=== PATIENT | female | born 1970 | race Caucasian/White ===

== ENCOUNTER 2020-11-10 09:13 | Outpatient (CLI) | payer OTHER, SELFPAY | END 2020-11-10 09:14 | disposition home or self-care (01) | LOC: ANHCOVIDVC 09:13 | PROVIDERS: PCP Family Medicine | DX: Z23 Encounter for immunization (principal) | CPT/HCPCS: 0001A; 91300 ==

== ENCOUNTER 2020-12-01 09:14 | Outpatient (CLI) | payer OTHER, SELFPAY | END 2020-12-01 09:15 | disposition home or self-care (01) | LOC: ANHCOVIDVC 09:14 | PROVIDERS: PCP Family Medicine | DX: Z23 Encounter for immunization (principal) | CPT/HCPCS: 0002A; 91300 ==

== ENCOUNTER 2024-09-15 14:44 | Emergency (ER) | payer OTHER, SELFPAY ==
--- NOTE | ~2024-09-15 | XR_ITS ---
EXAMINATION: XR chest 1V portable DATE: 09/15/2024 15:13 INDICATION: Chest tightness. TECHNIQUE: A single frontal view of the chest was obtained. COMPARISON: CT abdomen and pelvis 11/03/2009 FINDINGS: There is mild atelectasis at the lung bases. No pleural effusion or pneumothorax. The heart size is normal. IMPRESSION: 1. Mild atelectasis at the lung bases. Reviewed, dictated and finalized at location A. R UNLOADER
--- NOTE | ~2024-09-15 | XR_ITS ---
EXAMINATION: XR shoulder LT min 2V DATE: 09/15/2024 15:13 INDICATION: Left shoulder pain. TECHNIQUE: 4 views of left shoulder were obtained. COMPARISON: None. FINDINGS: Alignment is normal. No fracture. Glenohumeral joint is normal. There is moderate acromiocl avicular joint osteoarthritis. IMPRESSION: 1. Moderate acromioclavicular joint osteoarthritis. Reviewed, dictated and finalized at location A. CTOR OF EVENT SALES
[2024-09-15 14:44] VITALS: BP 141/78; PULSE 82; RESP 18; TEMP 36.3; O2SAT 97
[2024-09-15 14:45] VITALS: O2SAT 97
--- NOTE | 2024-09-15 15:00 | ECG_ITS ---
Test Date: 2024-09-15 15:15:22 Measurements Intervals Moody Rate: 71 P: 61 [place]: 183 QRS: 80 QRSD: 94 T: 47 QT: 405 QTc: 443 Interpretive Statements SINUS RHYTHM WITH SINUS ARRHYTHMIA BASELINE ARTIFACT- I, III, AVR, AVL, AVF, V1 NORMAL ECG No previous ECG available for comparison Electronically Signed On 09-15-2024 15:22:00 QUALITY ASSURANCE DIRECTOR by Flo Retana D.O.
[2024-09-15 15:13] LABS: Add Urine Microscopic? NO; Appearance Urine Clear (Clear); Bilirubin Urine Negative (Negative); Blood Urine Negative (Negative); Color Urine Light Yellow (Yellow); Glucose Urine UA Negative (Negative); Ketones Urine Negative (Negative); Leukocyte Esterase Ur Negative LEU/UL (Negative); Nitrate Urine Negative (Negative); Protein Urine Negative (Negative); Specific Grav Ur 1.015 (1.010-1.020); Urobilinogen Urine 0.2 mg/dL (0.2-1.0); pH Urine 5.5 (5.0-8.0)
[2024-09-15 15:40] VITALS: BP 114/72; PULSE 73; RESP 16; O2SAT 96
[2024-09-15 15:48] LABS: Influenza A QL RT-PCR Negative (Negative); Influenza B QL RT-PCR Negative (Negative); RSV RNA, RT-PCR Negative (Negative); SARS-CoV-2 RNA PCR Negative (Negative)
--- NOTE | 2024-09-15 16:21 | ED.BACK ---
HPI - Back Pain/Injury General Chief Complaint: Shortness of Breath/Dyspnea Stated Complaint: pain between shoulder blades Time Seen by Provider: 09/15/24 14:55 Source: patient Mode of arrival: ambulatory Limitations: no limitations History of Present Illness HPI Narrative: patient is a 54-year-old female with significant past medical history that presents today for a couple of different complaints. First of all she has pain between her shoulder blades more on the left side. She also has chest pain with inspiration and pain between the shoulder blades with aspiration as well. Denies any shortness of breath. Denies any cardiac history. She is describing more musculoskeletal pain versus costochondritis and pleuritis. MD elicited complaint: other ( In between shoulder blades on left side) Onset (ago): day(s) Timing: intermittent Severity: mild Pain scale (0-10): 3 Similar Symptoms Previously: No Quality: sharp Radiation: none Exacerbating factors: none Relieving factors: none Context: while lifting Associated symptoms: other ( pain with deep breast) Treatments prior to arrival: heat therapy Work related injury: No Related Data Allergies Allergy/AdvReac Type Severity Reaction Status Date / Time No Known Allergies Allergy Verified 09/15/24 14:58 Review of Systems Review of Systems: All systems reviewed & are unremarkable except as noted in HPI and below Constitutional: Constitutional: Reports as per HPI Eyes: Eyes: Reports no additional eye complaints ENT: Reports system reviewed and no additional complaints, except as documented Cardiovascular: Cardiovascular: Reports no additional cardiovascular complaints Respiratory: Respiratory: Reports no additional respiratory complaints Gastrointestinal: Gastrointestinal: Reports no additional gastrointestinal complaints Genitourinary: Genitourinary: Reports no additional female genitourinary complaints Musculoskeletal: Musculoskeletal: Reports as per HPI and Reports arthralgias Comments: pain between shoulder blades on left side, pain with the press around the sternum. , pain left acromioclavicular area. Integumentary/Breasts: Skin/Breast: Reports system reviewed and no additional complaints, except as docu Neurologic: Reports system reviewed and no additional complaints, except as documented Psychiatric: Psychiatric: Reports no additional psychiatric complaints Endocrine: Endocrine: Reports no additional endocrine complaints Hematologic/Lymphatic: Hematologic/Lymphatic: Reports no additional hematologic/lymphatic complaints Allergic/Immunologic: Allergic/Immunologic: Reports no additional allergic/immunologic complaints [facility] Past Medical History Medical History Shoulder pain, acute Anemia MVP (mitral valve prolapse) Anxiety Surgical History Surgical History H/O spinal fusion (~2002) Social History Social History Smoking status: Never smoker Alcohol intake: current Drinks per week: 3 Substance use: never Substance use type: does not use Exam Const: General: healthy appearing Nutritional Appearance: well nourished Orientation/consciousness: patient oriented x3 HENMT: Head: normal to inspection Ears: external ears normal Face/Nose/Sinus: Normal external nose present Face and sinus: normal facial exam Mouth: Yes Normal oral and palatal mucosa present Eyes: Conjunctivae: conjunctivae normal Pupils: Equal, round and reactive pupils present EOM: EOMs intact bilaterally Direct Ophthalmoscopy: no photophobia Neck: Neck: normal visual inspection Chest: Chest palpation & inspection: normal inspection of the chest Resp: Effort & Inspection: normal respiratory effort Auscultation: clear to auscultation bilaterally Cardio: Rate: regular rate Rhythm: regular rhythm Heart sounds: Murmur heart sound present GI: Auscultation: normal bowel sounds Rectal Exam: normal sphincter tone Back/Spine/Pelvis: Back: no CVA tenderness Skin: General skin exam: normal color Rashes: no rashes Wounds: no wounds Neuro: General: patient oriented x3 Cranial nerves: Yes Nystagmus not present Speech: normal speech Extrem: General: normal to inspection Psych: Mental Status: mental status grossly normal Affect: normal affect Attitude: cooperative Course Vital Signs Vital signs: Vital Signs Temperature 97.3 F L 09/15/24 14:44 Pulse Rate 82 09/15/24 14:44 Respiratory Rate 18 09/15/24 14:44 Blood Pressure 141/78 H 09/15/24 14:44 Pulse Oximetry 97 09/15/24 14:44 Oxygen Delivery Room Air 09/15/24 14:44 Temperature 97.3 F L 09/15/24 14:44 Pulse Rate 82 09/15/24 14:44 Respiratory Rate 18 09/15/24 14:44 Blood Pressure 141/78 H 09/15/24 14:44 Pulse Oximetry 97 02/17/25 14:45 Oxygen Delivery Room Air 09/15/24 14:45 MDM - Back Pain/Injury MDM Narrative Medical decision making narrative: Patient has pain between her shoulder was on the left side is very tender to touch on the left musculoskeletal area, she also has pain around the sternum with the breath indicating pleuritis, she also has a little bit pain on the AC joint the left side but shoulder. Will do x-rays to the left shoulder x-ray of the chest Differential Diagnosis Differential diagnosis: Likely other ( costochondritis, pleuritis) Medical Records Attestation: I reviewed the patient's medical records. Lab Data Attestation: I reviewed the patient's lab results. Labs: Lab Results 09/15/24 09/15/24 Range/Units 15:00 15:04 Urine Color Light yellow (Yellow) Urine Appearance Clear (Clear) Urine pH 5.5 (5.0-8.0) Ur Specific Pingree 1.015 (1.010-1.020) Urine Protein Negative (Negative) Urine Glucose (UA) Negative (Negative) Urine Ketones Negative (Negative) Ur Blood (Man) Negative (Negative) Urine Nitrate Negative (Negative) Urine Bilirubin Negative (Negative) Urine Urobilinogen 0.2 (0.2-1.0) mg/dL Leukocyte Esterase Rfl Negative (Negative) CHELY/UL Influenza A (RT-PCR) Negative (Negative) Influenza B (RT-PCR) Negative (Negative) RSV (RT-PCR) Negative (Negative) SARS-CoV-2 RNA (RT-PCR) Negative (Negative) Imaging Data Attestation: I personally reviewed and interpreted this imaging study as follows: Discharge Plan Discharge Clinical Impression: Costochondritis, Pleuritis Shoulder pain, acute Qualifiers: Laterality: left Qualified Code(s): M25.512 - Pain in left shoulder Patient Disposition: Home, Self-Care Condition: Stable Instructions: Pleurisy (ED), Costochondritis (ED) Additional Instructions: take ibuprofen every 6-8 hours 100 mg for the next couple days and then take as needed. Use heat packs between the shoulder blades. Patient Language: Maltese Prescriptions: No Action baclofen 10 mg tablet 10 mg PO TID PRN (Reason: pain, severe) Qty: 90 0RF Follow-up/Referrals: Vance,Radha [Other] Time of Disposition: 16:28
[2024-09-15 16:40] VITALS: BP 119/66; PULSE 83; RESP 16; TEMP 36.6; O2SAT 98
--- OUTSIDE RECORDS SUMMARY | 2024-09-15 17:33 | XMS_ITS | Continuity of Care Document ---
Author Organization [facility] Address [address] [place] [address] [address] [place] [address] Phone Care Team Providers Care Remote Broadcast Technician Name Role Phone Larry, Eddalila Unavailable Unavailable Advance Directives Directive Yes / No Effective Date File Name No Information Encounters Encounter Description Practice Location Reason(s) For Visit Diagnoses Date Provider Providers Copied on Encounter [facility], [address], [place], [place], [id number], [place] tel:[phone] SEC [facility] No Information 0 5-200 1 Doisy Edward. [address] [facility] , [address], [place], [place], [facility], [place]. tel:[phone] Referring Provider: Sage Valente, [address] [facility] [address], [place], [place], [facility]. tel:[phone] Family History Family Member Type Diagnosis Age At Onset No Information Payers Payer name Insurance type Covered alliance party ID Authoriza tion(s) No Information Social History [...]
--- OUTSIDE RECORDS SUMMARY | 2024-09-15 17:33 | XMS_ITS | Clinical Summary ---
Author Organization [facility] [facility] Address [address] [place] [address] Phone Care Team Providers Care Script Artist Name Role Phone Briana Mendez Primary Care Provider [phone] Social History Tobacco Use Types Packs/Day Years Used Date Smoking Tobacco: Never Assessed Comments Unknown Sex and Gender Information Value Date Recorded Sex Assigned at Not on file Legal Sex Female 10:10 AM CDT Gender Identity Not on file Sexual Orientation Not on file Plan of Treatment Health Maintenance Due Date Last Done Comments DTAP/TDAP/TD VACCINES (1 - Tdap) 1989 HEPATITIS B VACCINES (1 of 3 - 19+ 3-dose series) 1989 CERVICAL CANCER SCREENING 02/14/2000 COLORECTAL SCREENING 2015 Colorectal Cancer Screening 2015 FIT-DNA Q 3 years 2015 FIT/FOBT Q 1 year 2015 Flex Sig/CT Colonography Q 5 years 2015 ZOSTER VACCINE (1 of 2) 02/14/2020 INFLUENZA VACCINE (#1) 2024 BREAST CANCER SCREENING 06/13/2024 06/13/20 23, 03/02/2023 PNEUMOCOCCAL VACCINE 0-64 YEARS Aged Out No longer eligible b ased on patient's age to complete this topic Procedures Procedure Name Priority Date/Time Associated Diagnosis Comments MAMMO DIAG UNI RIGHT 3D JEFFREY W OR WO CAD Routine 06/13/2023 9:20 AM GAS JOCKEY Abnormal screening mammogram from Last 3 Months or Most Recently Relevant to Health Maintenance Results * (ABNORMAL) MAMMO DIAG UNI RIGHT 3D JEFFREY W OR WO CAD (06/13/2023 9:20 AM GAS JOCKEY) Anatomical Region Laterality Modality Breast Right Mammography 06/13/2023 9:56 AM GAS JOCKEY Narrative 06/13/2023 11:25 AM GAS JOCKEY EXAM: MAMMO DIAG UNI RIGHT 3D JEFFREY W OR WO CAD, MAMMO BREAST US RIGHT LTD, MAMMO BREAST US LEFT LTD DATE: 06/13/2023 HISTORY: Abnormal screening mammogram COMPARISON: 03/02/2023 DENSITY: Scattered fibroglandular densities. FINDINGS: Right breast diagnostic mammograms with tomosynthesis were performed. Computer assisted detection was utilized. Little significant change is noted. The parenchymal pattern is essentially unchanged a linear asymmetry in the central right deep upper breast persists and is only partially imaged on the current exam. The previously identified asymmetry in the lower outer right breast does not appear to persist with spot compression views. Ultrasound of both breasts was performed. Left breast ultrasound demonstrates a 7.5 x 3.0 mm lobular hypoechoic structure at the 4:00 position 5 cm from the nipple. Right breast ultrasound demonstrates a 7.5 x 2.0 hypoechoic lesion with a central hyperechoic core at the 8:00 position 5-6 cm from the nipple suggesting a lymph node. There is a small cyst at the 1-2:00 position 5 cm from the nipple. ASSESSMENT: 1. Indeterminate left breast nodule. A follow-up ultrasound in 6 months is recommended. 2. Right breast cyst and right breast lymph node. 3. BIRADS Category 3: Probably benign finding. Short interval follow up suggested. Digital technology was employed plus computer-aided detection software was utilized in interpretation of these images. Briana Mendez [facility] MAMMO ORDERABLES Final Result from Last 3 Months or Most Recently Relevant to Health Maintenance Insurance [facility] Care Teams Script Artist Relationship Specialty Start Date End Date Briana Mendez FNP [address] [place] [id number] PCP - General Nurse Practitioner Family 06/13/23
--- OUTSIDE RECORDS SUMMARY | 2024-09-15 17:58 | XMS_ITS | Continuity of Care Document ---
Author Organization [facility] Address [address] [place] [address] [address] [place] [address] Phone Care Team Providers Care Stake Driver Name Role Phone Larry, Eddalila Unavailable Unavailable Advance Directives Directive Yes / No Effective Date File Name No Information Encounters Encounter Description Practice Location Reason(s) For Visit Diagnoses Date Provider Providers Copied on Encounter [facility], [address], [place], [place], [id number], [place] tel:[phone] SEC [facility] No Information 0 5-200 1 Doisy Edward. [address] [facility] , [address], [place], [place], [facility], [place]. tel:[phone] Referring Provider: Sage Valente, [address] [facility] [address], [place], [place], [facility]. tel:[phone] Family History Family Member Type Diagnosis Age At Onset No Information Payers Payer name Insurance type Covered constitution party ID Authoriza tion(s) No Information Social [...]
--- OUTSIDE RECORDS SUMMARY | 2024-09-15 17:58 | XMS_ITS | Data Portability ---
Author Organization [place] - [facility], Quiana French Address [address] [place] [address] Assessment No assessment recorded. Plan of Treatment Reminders Order Date Submit Date Provider Last Modified By Organization Details Last Modified Time Details Appointments None recorded. Lab CMP, serum or plasma 2023 WILLIS [facility], [address] [place] [address], [place], [address], 08:28:01 Referral None recorded. Procedures None recorded. Surgeries None recorded. Imaging None recorded. Medication Orders fluticasone propionate 50 mcg/actuati on nasal spray,suspe nsion 2023 [facility] [place], [address] [place] [address], [address], 4 12:03:14 olopatadine 0.1 % eye drops 2023 [facility], [address] [place] [address], [address], 12:08:43 Patient TargetsNo targets recorded. Patient Instructions Encounter Date Encounter Id Patient Instructions Last Modified By Organization Details Last Modified Time 06/17/2024 [id number] allergic conjunctivitis in teens: care instructions [email or web address] Not available 06/17/2024 12:08:43 Reason for Referral None Reported. Results Created Date Observation Date Name Description Value Unit Range Abnormal Flag Note LastModifiedBy Organization Detail LastModifiedTime 09/05/19 24 09/06/2023 COMP. METAB OLIC PANEL (14) glucose 96 mg/dL 70-99 Not Available [facility] ([facility]) [address] [facility] [place], [address], 09/06/2023 08:28:01 09/05/19 24 09/06/2023 COMP. METAB OLIC PANEL (14) BUN 20 mg/dL 6-24 Not Available [facility] ([facility]) [address] [facility] [place], [address], 09/06/2023 08:28:01 09/05/19 24 09/06/2023 COMP. METAB OLIC PANEL (14) creatinine 0.80 mg/dL 0.57-1 .00 Not Available [facility] ([facility]) [address] [facility] [place], [address], 09/06/2023 08:28:01 09/05/19 24 09/06/2023 COMP. METAB OLIC PANEL (14) eGFR 88 mL/mi n/1.7 3 >59 Not Available [facility] ([facility]) [address] [facility] [place], [address], 09/06/2023 08:28:01 09/05/19 24 09/06/2023 COMP. METAB OLIC PANEL (14) BUN/creatini ne ratio 25 9-23 above high normal Not Available [facility] ([facility]) [address] [facility] [place], [address], 09/06/2023 08:28:01 09/05/19 24 09/06/2023 COMP. METAB OLIC PANEL (14) sodium 143 mmol/ L 134-14 4 Not Available [facility] ([facility]) [address] [facility] [place], [address], 09/06/2023 08:28:01 09/05/19 24 09/06/2023 COMP. METAB OLIC PANEL (14) potassium 4.5 mmol/ L 3.5-5. 2 Not Available [facility] ([facility]) [address] [facility] [place], [address], 09/06/2023 08:28:01 09/05/19 24 09/06/2023 COMP. METAB OLIC PANEL (14) chloride 105 mmol/ L 96-106 Not Available [facility] ([facility]) [address] [facility] [place], [address], 09/06/2023 08:28:01 09/05/19 24 09/06/2023 COMP. METAB OLIC PANEL (14) carbon dioxide, total 24 mmol/ L 20-29 Not Available [facility] ([facility]) [address] [facility] [place], [address], 09/06/2023 08:28:01 09/05/19 24 09/06/2023 COMP. METAB OLIC PANEL (14) calcium 9.6 mg/dL 8.7-10 .2 Not Available [facility] ([facility]) [address] [facility] [place], [address], 09/06/2023 08:28:01 09/05/19 24 09/06/2023 COMP. METAB OLIC PANEL (14) protein, total 6.6 g/dL 6.0-8. 5 Not Available [facility] ([facility]) [address] [facility] [place], [address], 09/06/2023 08:28:01 09/05/19 24 09/06/2023 COMP. METAB OLIC PANEL (14) albumin 4.6 g/dL 3.8-4. 9 Not Available [facility] ([facility]) [address] [facility] [place], [address], 09/06/2023 08:28:01 09/05/19 24 09/06/2023 COMP. METAB OLIC PANEL (14) globulin, total 2.0 g/dL 1.5-4. 5 Not Available [facility] ([facility]) [address] [facility] [place], [address], 09/06/2023 08:28:01 09/05/19 24 09/06/2023 COMP. METAB OLIC PANEL (14) A/G ratio 2.3 1.2-2. 2 above high normal Not Available [facility] ([facility]) [address] [facility], [place], [address], 09/06/2023 08:28:01 09/05/19 24 09/06/2023 COMP. METAB OLIC PANEL (14) bilirubin, total 0.3 mg/dL 0.0-1. 2 Not Available [facility] ([facility]) [address] [facility], [place], [address], 09/06/2023 08:28:01 09/05/19 24 09/06/2023 COMP. METAB OLIC PANEL (14) alkaline phosphatase 118 IU/L 44-121 Not Available [facility] [address] [place], [address], 09/06/2023 08:28:01 09/05/19 24 09/06/2023 COMP. METAB OLIC PANEL (14) AST (SGOT) 27 IU/L 0-40 Not Available [facility] ([facility]) [address] [place], [address], 09/06/2023 08:28:01 09/05/19 24 09/06/2023 COMP. METAB OLIC PANEL (14) ALT (SGPT) 46 IU/L 0-32 above high normal Not Available [facility] ([facility]) [address] [place], [address], 09/06/2023 08:28:01 Result Notes None recorded. Problems Name Problem SNOMED Code Status Onset Date Resolution Date Notes Provider Name and Address Organization Details Recorded Time Anemia 357307071 Active 2023 Briana Mendez NP [address], [place], [address] , [place] - [facility] 08:45:30 Anxiety 46420072 Active 2023 Briana Mendez NP [address], [place], [address] , [facility] 4 08:45:41 Mitral valve prolapse 209138330 Active 2023 Briana Mendez NP [address], [place], [address] , [facility] 4 08:45:52 Obesity 764983066 Active 2023 Briana Mendez NP [address], [place], [address] , [facility] 4 08:45:59 Back fusion Completed 202211/15/2023 Back fusion; PROBABIL ITY: 0 Confir mation: Confirme d Annota tedDispl ay: Back fusion C lassific ation: Medical Not Available [facility] 4 15:08:09 Benign paroxysm al position al vertigo 557230878 Active 2022 Benign paroxysm al position al vertigo; PROBABIL ITY: 0 SENSIT IVITY: 0.0 Conf irmation : Confirme d Annota tedDispl ay: BPPV (benign paroxysm al position al vertigo) Classif ication: Medical Lifecycl eDateTim e: 15:21:00 +00:00 Not Available [facility] 4 15:08:11 Vertigo 224924585 Active 2023 Caryn Guillen NP [address], [facility] [place], [address] , [facility] 4 12:01:45 Allergic conjunct ivitis of bilatera l eyes 45920820292 9102 Active 2023 Caryn Guillen NP [address], [facility] [place], [address] , [facility] 4 12:04:08 Problem Notes None recorded. Procedures Surgical History Date Name Laterality Status Provider Name and Address Organization Details Recorded Time 4 Fluorescein Stain completed Caryn Guillen NP [address], [place], [address], [facility] 06/17/2024 14:09:35 Imaging Results None recorded. Procedure Notes None recorded. Medical Equipment None Reported. Allergies Allergen ID Allergen Name Allergen Category Reaction Reaction Severity Criticality Documentation Date Start Date Code Code System Note Provider Name and Address Organization Details Recorded Time 049776 No Allergy Informati on Available Not available Not available Not available Not available 11/15/2023 35929 UNK Comme nt: React ion Class : Aller gy; Not Available [facility] 14:[facility]:16 No known drug allergies Medications Name Sig Start Date Stop Date Status Note LastModified by Organization Details LastModified Time azithromy lorelei 250 mg tablet 06/17 completed Not Available Not Available Not Available ketorolac 30 mg/mL (1 mL) injection solution 03/07 completed StopType : Physicia n Stop [place] Dick umber: [id number] N extDoseD ate: 03/07/2023 10:29:00 AM Const antIndic ator: No CSASc hedule: 0 active _status_ dt_tm: 03/07/2023 10:29:34 AM Not Available Not Available Not Available meclizine 25 mg tablet 1 tab(s) Oral tid,PRN: for dizzines s 03/10 completed PRNInstr uctions: for dizzines s StopTy pe: Physicia n Stop [place] asenciotionMagaly umber: [id number] S cheduled PRN: Yes Tota lRefills : 0 Consta ntIndica tor: No CSASc hedule: 0 active _status_ dt_tm: 03/07/2023 10:22:45 AM Not Available Not Available Not Available olopatadi ne 0.1 % eye drops INSTILL 1 DROP INTO AFFECTED EYE(S) BY OPHTHALM IC ROUTE 2 TIMES PER DAY 2023 active Not Available Not Available Not Avai lable fluticaso ne propionat e 50 mcg/actua tion nasal spray,sandy pension [place] 2 sprays every day by intranas al route. active Not Available Not Available No t Available Ciprodex 0.3 %-0.1 % ear drops,sandy pension 4 drops to bilat ears BID x 7 days 06/17 completed StopType : Physicia n Stop [place] Luther icationMagaly umber: [id number] T otalRefi lls: 0 Consta ntIndica tor: Yes CSAS chedule: 0 active _status_ dt_tm: 02/01/2023 2:40:39 PM Not Available Not Available Not Available Vitals Date Recorded Body weight Body mass index (BMI) Body height Heart rate Body temperature Oxygen saturation Oxygen saturation in Arterial blood by Pulse oximetry Systolic blood pressure Diastolic blood pressure Provider Name and Address Organization Details Last Updated DateTime 4 53873.6 3 g 31.9 kg/m2 160.02 cm 71 /min 97.8 [degF] 96 % 96 % 119 mm[Hg] 82 mm[Hg] Harry Pearce [place] [facility] 4 11:30:31 Social History None recorded. Functional Status None recorded. Mental Status None recorded. Family History Nothing Reported. Medical History No medical history recorded. Gynecological HistoryNo gynecological history recorded. Obstetrics History GPAL:G 0 P 0 0 0 0 Past Encounters Encounter ID Performer Location Encounter Start Date Encounter Closed Date Diagnosis/Indication Diagnosis SNOMED-CT Code Diagnosis ICD10 Code Diagnosis Note [id number] [facility] [address] [place] [address] 09/05/2023 09:18:53 09/05/2023 09:46:16 Liver enzymes level above reference range 491625666 R74.01 [id number] Caryn Guillen, RANJEET Pugh s [address] [place] [address] 06/17/2024 11:22:15 06/25/2024 06:36:04 Vertigo 896209139 R42 pt states she uses it for vertigo in the past. continues to use it. will refill. Allergic conjunctivitis of bilateral eyes 1285892925 20777 H10.13 Discussed with pt likely an allergic conjunctiv itis given presentati on and exam findings. Discussed handout with pt. Will start olopatadin e drops BID, discussed drops by 6-8 hours. Discussed proper instillati on - wash hands before and after, dont touch bottle to eye. Can apply cool washcloths as well.If no improvemen t in the next week, pt to follow up with eye clinic downstairs or a different eye dr if she goes somewhere else for full exam; can RTC if unable to get eye appt. Discussed signs of bacterial infection (including purulent discharge that is constant) that would necessitat e reevaluati on. If any eye pain, photophobi a/light sensitivit y, or vision changes, pt needs full vision/eye exam [facility]. Vision was normal during exam but if still feels it is blurry after 2-3 days of drops or any change/wor sening, pt is to be examined by eye dr [facility].Recom mendation per state regulation s noted to follow up with a physician in 2 weeks for any new diagnosis or change in status. Pt will follow up with eye dr or RTC if no improvemen t or any change/wor sening but agrees with plan at this time.Pt verbalizes understand ing, agrees with plan, no further questions at this time. Health Concerns Section Related Observation LastModified by Organization Detai ls LastModified Time None Recorded Concern Status LastModified by Organization Details LastModified Time None Recorded Advance Directives Directive None Recorded Payers Encounter Date Sequence Insurance Name Policy Number Policy [place] Covered Member ID [place] Member ID Guarantor Name 09/05/2023 1 [facility] [id number] Lolita Jauregui UNKNOWN Lolita Jauregui 06/17/2024 1 [facility] [id number] Lolita Jauregui [id number] Lolita Jauregui Notes Date Note Type Note Provider Name and Address Organization Details Recorded Time 06/17/2024 text/html 54 y/o F present s for burning, itching, gritty sensation of bilateral eyes for the past 3 days. Pt states that she first felt like her eyes were burning and irritated this weekend. She has felt like in the last 2 days she had more tearing (clear discharge). No purulent discharge noted. No fever/chills. No sore throat, nasal congestion, sneezing, nasal discharge, or headache. Does report intermittent cough for the past few weeks, worse at night when laying down. Pt states she is going out of town this weekend and was concerned she had contracted bacterial conjunctivitis from her dog; she is currently administering antibiotics to her dog for conjunctivitis but reports wearing gloves and washing hands after administering. Pt denies any new medicines, lotions, detergents, soaps, etc that she would have been exposed to. Denies known foreign body in her eye but does state she feels like the eyes are constantly irritated, like something gritty is in both eyes. Now in the past 1-2 days, she feels like her eyes are extremely itchy though she has been trying not to rub them. Denies wearing contacts. States in the mornings the past 3 days, she feels like she wakes up more sensitive to the light in her bedroom when she turns it on but that light sensitivity does not last. Currently no photophobia/light sensitivity. No n/v/d. No dizziness. No CP or SOB with her intermittent cough. Has not tried any meds or eye drops for treatment. No cool wash cloth application. Also reports feeling like her vision is intermittently 'blurrier' than normal - but feels like it is possibly her squinting more from the burning/irritated feeling. States she still feels able to see normally most of the time- wears glasses at times but for every day vision does not wear glasses or contacts. Last eye appt was sometime early this year as she got new glasses. Pt reports using flonase in the past to keep vertigo at bay. Denies known hx of seasonal allergies and only used it for vertigo but would like a refill. Caryn Guillen, RANJEET [address], [place], [address], [place] - [facility] 06/17/2024 14:20:15 OBGyn Episode No OBEpisode recorded.
--- OUTSIDE RECORDS SUMMARY | 2024-09-15 17:58 | XMS_ITS | Clinical Summary ---
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 Briana Mendez [facility] MAMMO ORDERABLES Final Result from Last 3 Months or Most Recently Relevant to Health Maintenance Insurance [facility] [employer] Care Teams Supervisor [employer] Relationship Specialty Start Date End Date Briana Mendez FNP [address] [place] [id number] PCP - General Nurse Practitioner Family 06/13/23
== END 2024-09-15 16:40 | disposition home or self-care (01) ==
PROVIDERS: Emergency Provider Family Medicine
DX: M94.0 Chondrocostal junction syndrome [Tietze] (principal); M25.512 Pain in left shoulder; Z20.822 Contact with and (suspected) exposure to COVID-19
CPT/HCPCS: 71045; 73030; 81003; 87637; 93005; 99283

== ENCOUNTER 2024-12-16 00:37 | Day surgery (SDC) | payer OTHER, SELFPAY ==
[2024-12-09 09:54] VITALS: BMI 29.7
--- OUTSIDE RECORDS SUMMARY | 2024-12-16 00:49 | XMS_ITS | Continuity of Care Document ---
Author Organization [facility] Address [address] [place] [address] [address] [place] [address] Phone Care Team Providers Care Gerontology Aide Name Role Phone Larry, Eddalila Unavailable Unavailable Advance Directives Directive Yes / No Effective Date File Name No Information Encounters Encounter Description Practice Location Reason(s) For Visit Diagnoses Date Provider Providers Copied on Encounter [facility], [address], [place], [place], [id number], [place] tel:[phone] [facility] No Information 0 5-200 1 Doisy Edward. [address] , [address], [place], [place], [facility], [place]. tel:[phone] Referring Provider: Sage Valente, [address], [place], [place], [facility]. tel:[phone] Family History Family Member Type Diagnosis Age At Onset No Information Payers Payer name Insurance type Covered green party ID Authoriza tion(s) No Information Social [...]
--- OUTSIDE RECORDS SUMMARY | 2024-12-16 00:50 | XMS_ITS | Data Portability ---
Author Organization [place] - [facility], Quiana French Address [address] [place] [address] Assessment No assessment recorded. Plan of Treatment Reminders Order Date Submit Date Provider Last Modified By Organization Details Last Modified Time Details Appointments InPerson; Chronic Disease Mgmt 2024 03:40P Sam Clements NP Not available Not available Not available Lab HbA1c (hemoglob in A1c), blood 2024 025 [place] [facility] [place], [address], 10/01/2024 08:37:54 lipid panel, serum 2024 025 [place] [facility] [place], [address], 10/01/2024 08:37:53 TSH, ultra-sen sitive, serum 2024 025 [place] [facility] [place], [address], 10/01/2024 08:37:55 BMP, serum or plasma 2024 025 [place] [facility] [place], [address], 10/01/2024 08:37:52 Referral None recorded. Procedures colonosco py screening (PROC) - screening colonosco py 2024 025 [id number] [facility] Referral Coordinators, [address] [place] [address] [address], [place], [address], 11/19/2024 14:00:36 Surgeries None recorded. Imaging electroca rdiogram [address], [address] [place] [address], [address], 10/28/2024 10:36:36 Medication Orders topiramat e 50 mg tablet 2024 025 [facility], [address] [place] [address], [address], 11/27/2024 16:20:54 phentermi ne 15 mg capsule 2024 025 [facility], [address] [place] [address], [address], 11/27/2024 16:21:23 topiramat e 50 mg tablet [address], [address] [place] [address], [address], 10/28/2024 10:56:10 phentermi ne 15 mg capsule [address], [address] [place] [address], [address], 10/28/2024 10:53:16 Topamax 25 mg tablet 2024 025 [facility], [address] [place] [address], [address], 10/28/2024 10:45:58 fluticaso ne propionat e 50 mcg/actua tion nasal spray,sandy pension 2023 024 [facility], [address] [place] [address], [address], 06/17/2024 12:03:14 olopatadi ne 0.1 % eye drops 2023 024 [facility], [address] [place], [address], 06/17/2024 12:08:43 Patient TargetsNo targets recorded. Patient Instructions Encounter Date Encounter Id Patient Instructions Last Modified By Organization Details Last Modified Time 06/17/2024 [id number] allergic conjunctivitis in teens: care instructions [email or web address] Not available 06/17/2024 12:08:43 Reason for Referral None Reported. Results Created Date Observation Date Name Description Value Unit Range Abnormal Flag Note LastModifiedBy Organization Detail LastModifiedTime 10/01/1910/01/2024 BASIC METAB OLIC PANEL (8) glucose 102 mg/dL 70-99 above high normal Not Available [facility] ([facility]) [address] [place], [address], 10/01/2024 08:37:52 10/01/19 25 10/01/2024 BASIC METAB OLIC PANEL (8) BUN 20 mg/dL 6-24 normal Not Available [facility] ([facility]) [address] [place], [address], 10/01/2024 08:37:52 10/01/19 25 10/01/2024 BASIC METAB OLIC PANEL (8) creatinine 0.91 mg/dL 0.57-1 .00 normal Not Available [facility] ([facility]) [address] [place], [address], 10/01/2024 08:37:52 10/01/1910/01/2024 BASIC METAB OLIC PANEL (8) eGFR 75 mL/mi n/1.7 3 >59 normal Not Available [facility] ([facility]) [address] [place], [address], 10/01/2024 08:37:52 10/01/19 25 10/01/2024 BASIC METAB OLIC PANEL (8) BUN/creatini ne ratio 22 9-23 normal Not Available [facility] ([facility] [address] [place], [address], 10/01/2024 08:37:52 10/01/19 25 10/01/2024 BASIC METAB OLIC PANEL (8) sodium 142 mmol/ L 134-14 4 normal Not Available [facility] ([facility]) [address] [facility] [place], [address], 10/01/2024 08:37:52 10/01/19 25 10/01/2024 BASIC METAB OLIC PANEL (8) potassium 4.9 mmol/ L 3.5-5. 2 normal Not Available [facility] ([facility]) [address] [facility] [place], [address], 10/01/2024 08:37:52 10/01/19 25 10/01/2024 BASIC METAB OLIC PANEL (8) chloride 102 mmol/ L 96-106 normal Not Available [facility] ([facility]) [address] [facility] [place], [address], 10/01/2024 08:37:52 10/01/19 25 10/01/2024 BASIC METAB OLIC PANEL (8) carbon dioxide, total 24 mmol/ L 20-29 normal Not Available [facility] ([facility]) [address] [facility] [place], [address], 10/01/2024 08:37:52 10/01/19 25 10/01/2024 BASIC METAB OLIC PANEL (8) calcium 10.0 mg/dL 8.7-10 .2 normal Not Available [facility] ([facility]) [address] [facility] [place], [address], 10/01/2024 08:37:52 10/01/19 25 10/01/2024 LIPID PANEL W/ CHOL/ HDL RATIO cholesterol, total 232 mg/dL 100-19 9 above high normal Not Available [facility] ([facility]) [address] [facility] [place], [address], 10/01/2024 08:37:53 10/01/19 25 10/01/2024 LIPID PANEL W/ CHOL/ HDL RATIO triglyceride s 118 mg/dL 0-149 normal Not Available [facility] [address] [place], [address], 10/01/2024 08:37:53 10/01/19 25 10/01/2024 LIPID PANEL W/ CHOL/ HDL RATIO HDL cholesterol 73 mg/dL >39 normal Not Available [facility] [address] [place], [address], 10/01/2024 08:37:53 10/01/19 25 10/01/2024 LIPID PANEL W/ CHOL/ HDL RATIO VLDL cholesterol marisol 21 mg/dL 5-40 Not Available [facility] [address] [place], [address], 10/01/2024 08:37:53 10/01/19 25 10/01/2024 LIPID PANEL W/ CHOL/ HDL RATIO LDL chol calc ([facility]) 138 mg/dL 0-99 above high normal Not Available [facility] ([facility]) [address] [place], [address], 10/01/2024 08:37:53 10/01/19 25 10/01/2024 LIPID PANEL W/ CHOL/ HDL RATIO LDL calc comment: [employer] Not Available [facility] ([facility]) [address] [place], [address], 10/01/2024 08:37:53 10/01/19 25 10/01/2024 LIPID PANEL W/ CHOL/ HDL RATIO T. chol/HDL ratio 3.2 ratio 0.0-4. 4 T. Chol/ HDL Ratio Men Women 1/2 Avg.R isk 3.4 3.3 Avg.R isk 5.0 4.4 2X Avg.R isk 9.6 7.1 3X Avg.R isk 23.4 11.0 Not Available [facility] ([facility]) [address] [place], [address], 10/01/2024 08:37:53 10/01/19 25 10/01/2024 HEMOG LOBIN A1C hemoglobin A1C 5.4 % 4.8-5. 6 normal Predi abete s: 5.7 - 6.4 Diabe david: >6.4 Glyce yamileth contr ol for adult s with diabe david: <7.0 Not Available [facility] ([facility]) [address] [facility], [place], [address], 10/01/2024 08:37:54 10/01/19 25 10/01/2024 TSH RFX ON ABNOR MAL TO FREE T4 TSH 1.810 uIU/m L 0.450- 4.500 normal Not Available [facility] ([facility]) [address] [facility], [place], [address], 10/01/2024 08:37:54 09/18/19 25 09/15/2024 XR, chest , 1 view No observ ation record ed. BARCODE Not Available 2024 17:16:53 10/29/19 25 10/28/2024 elect rocar diogr am No observ ation record ed. [email or web address] [facility] [address] [place], [address], 10/28/2024 11:52:15 11/04/19 elect rocar diogr am No observ ation record ed. [email or web address] [facility] [address] [place], [address], 11/03/2024 12:38:45 11/18/19 25 11/17/2024 MAMMO , diagn ostic , bilat eral No observ ation record ed. [email or web address] [facility] [address] [facility], [place], [address], 11/27/2024 17:08:13 11/18/19 25 11/17/2024 MAMMO , diagn ostic , bilat eral No observ ation record ed. [email or web address] [facility] [address] [facility], [place], [address], 11/27/2024 17:08:13 Result Notes None recorded. Problems Name Problem SNOMED Code Status Onset Date Resolution Date Notes Provider Name and Address Organization Details Recorded Time Anemia 087639821 Active 2023 Briana Mendez NP [address], [place], [address] , [place] [facility] 4 08:45:30 Anxiety 07832209 Active 2023 Brinaa Mendez NP [address], [place], [address] , [place] [facility] 4 08:45:41 Mitral valve prolapse 144406892 Active 2023 Briana Mendez NP [address], [place], [address] , [place] [facility] 4 08:45:52 Obesity 953929263 Active 2023 Briana Mendez NP [address], [place], [address] , [place] [facility] 4 08:45:59 Back fusion Completed 202211/15/2023 Back fusion; PROBABIL ITY: 0 Confir mation: Confirme d Annota tedDispl ay: Back fusion C lassific ation: Medical Not Available [facility] 4 15:08:09 Benign paroxysm al position al vertigo 421454943 Active 2022 Benign paroxysm al position al vertigo; PROBABIL ITY: 0 SENSIT IVITY: 0.0 Conf irmation : Confirme d Annota tedDispl ay: BPPV (benign paroxysm al position al vertigo) Classif ication: Medical Lifecycl eDateTim e: 15:21:00 +00:00 Not Available [facility] 4 15:08:11 Vertigo 535699337 Active 2023 Caryn Guillen NP [address], [place], [address] , [place] [facility] 4 12:01:45 Allergic conjunct ivitis of bilatera l eyes 94933113820 9102 Active 2023 Caryn Guillen, [employer] [address], [place], [address] , [place] [facility] 4 12:04:08 Preventi ve namitai miraim Active 2024 was Briana Garay pt has not restest last seen 01/2023 for PE Exercise : walks the dogs, active Diet: started [facility] wt loss secret- like keto- 4 oz of protein, 4 oz of veggies and 4 oz of fruit twice a day. Caffeine use: coffee black in morning 2 cups per day Tobacco use: none Alcohol use: occasion ally Sleep: averages 4-5 hours, can fall asleep, but not stay asleep, uses aleve PM prn Last dentist exam: needs to get establis hed Last eye exam: needs to get establis hed Women's Health: LMP: menopaus e several years ago. Had ablation 15 years ago. Last mammogra m: maybe 5 years ago? Last one done in [place], [place], but would like to go to a place around here where she works. Last Pap smear: over 5 years ago- hx of endometr iosis, but no further problems after menopaus e. She is due and planning to schedule a WWE here. 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) : unsure Tdap: 2022 Shringri x (age 50+): wants to come back on a day to do this COVID: Pfizer x 2, 1 booster Surveill ence Screenin g: Low dose CT screenin g (for age >50 with 20 pack year hx, or quit within the last 15 years): not indicate d Hep C screenin g age (54-75): needs HIV screenin g (once): needs Colonosc opy (age 45-50): has not had a colonosc opy, but is willing to get one Cologuar d: (age 45-50 optional ): not indicate d AAA screenin g (65+ and smoker): not indicate d STI screenin g (<25 or risk factors) : not indicate d Depressi on screenin g: negative Radha Vance MD [address], [place], [address] , [place] [facility] 5 10:39:46 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 see scapulag ia Radha Vance MD [address], [place], [address] , [place] [facility] 5 18:47:00 Pleurisy 622094666 Active 2024 ED visit 5; no meds Radha Vance MD [address], [place], [address] , [place] [facility] 5 18:46:47 Scapulal ervin 58970410 Active 2024 between shoulder blade pain, see in ED 5, treated with baclofen #90? Radha Vance MD [address], [place], [address] , [place] [facility] 5 18:46:25 Mammogra phy abnormal 063369454 Active 2024 Na Clements NP [address], [place], [address] , [place] [facility] 12:09:15 Problem Notes None recorded. Procedures Surgical History Date Name Laterality Status Provider Name and Address Organization Details Recorded Time 06/17/20 Fluorescein Stain completed Caryn Guillen NP [address], [place], [address], [place] [facility] 06/17/2024 14:09:35 Neurosurgery completed Harry Pearce [place] [facility] 09/30/2024 09:14:43 Imaging Results Imaging Date Name Status LastModified by Organization Details LastModified Time 09/15/2024 XR, chest, 1 view completed BARCODE Informa tion not available 09/18/2024 17:16:53 10/28/2024 electrocardiogram completed [email or web address] [facility] [address] [place], [address], 10/28/2024 11:52:15 11/03/2024 electrocardiogram completed [email or web address] [facility] [address] [place], [address], 11/03/2024 12:38:45 11/17/2024 MAMMO, diagnostic, bilateral completed [email or web address] [facility] [address] [facility], [place], [address], 11/27/2024 17:08:13 11/17/2024 MAMMO, diagnostic, bilateral completed [email or web address] [facility] [address] [place], [address], 11/27/2024 17:08:13 Procedure Notes None recorded. Medical Equipment None Reported. Allergies Allergen ID Allergen Name Allergen Category Reaction Reaction Severity Criticality Documentation Date Start Date Code Code System Note Provider Name and Address Organization Details Recorded Time 655059 No Allergy Informati on Available Not available Not available Not available Not available 11/15/2023 92561 [id number] Comme nt: React ion Class : Aller gy; Na Clements NP [address], [place], [address], [place] [facility] 16:39:04 No known drug allergies Medications Name Sig Start Date Stop Date Status Note LastModified by Organization Details LastModified Time azithromy lorelei 250 mg tablet active Not Available Not Available No t Available phentermi ne 15 mg capsule TAKE 1 CAPSULE BY MOUTH EVERY DAY IN THE MORNING FOR 30 DAYS. active Not Available Not Available No t Available topiramat e 25 mg tablet Take 1 tablet every day by oral route in the evening. 10/28 completed Not Available Not Available Not Available ketorolac 30 mg/mL (1 mL) injection solution 03/07 completed StopType : Physicia n Stop Reno Levarsadiq lindaMagaly umber: [id number] N extDoseD ate: 03/07/2023 10:29:00 AM Const antIndic ator: No CSASc hedule: 0 active _status_ dt_tm: 03/07/2023 10:29:34 AM Not Available Not Available Not Available meclizine 25 mg tablet 1 tab(s) Oral tid,PRN: for dizzines s 03/10 completed PRNInstr uctions: for dizzines s StopTy pe: Physicia n Boo Bojorquez Elenamicaela asenciowilbertoN umber: [id number] S cheduled PRN: Yes Tota lRefills : [...] e 50 mcg/actua tion nasal spray,sandy pension Clarkson 2 sprays every day by intranas al route. active Not Available Not Available No t Available Ciprodex 0.3 %-0.1 % ear drops,sandy pension 4 drops to bilat ears BID x 7 days 06/17 completed StopType : Physicia n Stop Reno Elenamicaela lindaMagaly umber: [id number] T otalRefi lls: 0 Consta ntIndica tor: Yes CSAS chedule: 0 active _status_ dt_tm: 02/01/2023 2:40:39 PM Not Available Not Available Not Available topiramat e 50 mg tablet TAKE 1 TABLET BY MOUTH EVERY DAY IN THE EVENING FOR 30 DAYS. active Not Available Not Available No t Available Vitals Date Recorded Body weight Body mass index (BMI) Body height Heart rate Body temperature Oxygen saturation Oxygen saturation in Arterial blood by Pulse oximetry Systolic blood pressure Diastolic blood pressure Provider Name and Address Organization Details Last Updated DateTime 4 89103.6 3 g 31.9 kg/m2 160.02 cm 71 /min 97.8 [degF] 96 % 96 % 119 mm[Hg] 82 mm[Hg] Harry Pearce [facility] 4 11:30:31 Date Recorded Body height Body mass index (BMI) Body weight Body temperature Heart rate Oxygen saturation Oxygen saturation in Arterial blood by Pulse oximetry Systolic blood pressure Diastolic blood pressure Provider Name and Address Organization Details Last Updated DateTime 5 160.02 cm 32.6 kg/m2 78723 g 98.4 [degF] 84 /min 97 % 97 % 112 mm[Hg] 78 mm[Hg] Harry [facility] 5 09:20:22 Date Recorded Body height Body mass index (BMI) Body weight Body temperature Oxygen saturation Oxygen saturation in Arterial blood by Pulse oximetry Heart rate Systolic blood pressure Diastolic blood pressure Provider Name and Address Organization Details Last Updated DateTime 5 160.02 cm 32.4 kg/m2 92659.4 g 98 [degF] 100 % 100 % 68 /min 114 mm[Hg] 72 mm[Hg] Harry Pearce [facility] 5 11:08:57 Date Recorded Body height Body mass index (BMI) Body weight Body temperature Oxygen saturation Oxygen saturation in Arterial blood by Pulse oximetry Heart rate Systolic blood pressure Diastolic blood pressure Provider Name and Address Organization Details Last Updated DateTime 5 160.02 cm 31.7 kg/m2 88477.0 3 g 97.7 [degF] 99 % 99 % 70 /min 129 mm[Hg] 78 mm[Hg] Harry Pearce [facility] 5 10:16:07 Date Recorded Body height Body mass index (BMI) Body weight Body temperature Oxygen saturation Oxygen saturation in Arterial blood by Pulse oximetry Respiratory rate Systolic blood pressure Diastolic blood pressure Provider Name and Address Organization Details Last Updated DateTime 160.02 cm 30.4 kg/m2 77398.1 7 g 97.9 [degF] 98 % 98 % 17 /min 146 mm[Hg] 88 mm[Hg] Eduarda Muller [place] [facility] 16:07:22 Date Recorded Systolic blood pressure Diastolic blood pressure Provider Name and Address Organization Details Last Updated DateTime 11/27/2024 132 mm[Hg] 86 mm[Hg] Na Clements NP [address], [place], [address], [place] [facility] 11/27/2024 16:18:16 Social History Question Answer Notes LastModified by WorkTouch Details LastModified Time Tobacco Smoking Status Never Smoker Harry Pearce [place], [place] [facility] 09/30/2024 09:14:42 What Is Your Level Of Caffeine Consumption? Moderate [email or web address] Information not available 09/30/2024 How Much Tobacco Do You Chew? None [email or web address] Information not available 09/30/2024 What Is The Highest Grade Or Level Of School You Have Completed Or The Highest Degree You Have Received? [id number] Information not available 09/30/2024 Cigar Smoking No [email or web address] Information not available 09/30/2024 Does Anyone Insult Or Talk Down To You? Never [email or web address] Information not available 09/30/2024 Does Anyone Physically Hurt You At Home? Never [email or web address] Information not available 09/30/2024 Does Anyone Scream Or Curse At You? Never [email or web address] Information not available 09/30/2024 Does Anyone Threaten/bully You With Harm? Never Information not available 09/30/2024 Sleep Habits 5-6 Hours Per Night [email or web address] Information not available 09/30/2024 Have You Ever Served In The ? No [email or web address] Information not available 09/30/2024 What Was The Date Of Your Most Recent Tobacco Screening? 10/07/2024 [email or web address] Information not available 10/07/2024 What Is Your Relationship Status? [email or web address] Information not available 09/30/2024 Sex: Unknown Functional Status Question Answer Note LastModified by Organizat ion Details LastModified Time Do you or have you ever used any other forms of tobacco or nicotine? No [email or web address] Information not available 09/30/2024 What is your level of alcohol consumption? Occasional Information not available 09/30/2024 Do you or have you ever used smokeless tobacco? 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 Family History Relationship Description Onset Age of this Age Resolved Age Notes LastModified by Organization Details LastModified Time Father No current problems or disability [email or web address] Not available 11/27 16:07:58 Mother No current problems or disability [email or web address] Not available 11/27 16:07:58 Medical History Condition Response Coronary Artery Disease N Gout N Macular Degeneration N Atrial Fibrillation N Heart Valve Disorder N Kidney Stones N Hyperthyroidism N MRSA N COPD N Depression N Migraine Headaches N Hodgkin's Lymphoma N Retinopathy Diabetic N Positive TB Skin Test N Obstructive Sleep Apnea N Sinus Infections N Infertility N Carpal Tunnel N Lupus (SLE) N DVT (Blood Clot in legs) N Rheumatoid Arthritis N Fibromyalgia N Incontinence, stress N Anxiety N Venous Insufficiency (Swelling of Legs & Ankles) N Anemia, other N Vit D Deficiency N Peptic Ulcer Disease N Irritable bowel N Menstrual Cycle- Heavy N Blood in urine N GERD (reflux) N Compression fracture of spine (vertebral ) N Carotid Artery Disease N Tuberculosis N AIDS/HIV N Hip fracture N Anemia, iron deficient N Asthma N Blood clotting disorder N Diabetes Type II N Peripheral Vascular Disease N Myocardial Infarction with Stent (Heart Attack) N Abnormal Pap N Hepatitis N Diabetes Type I N Cirrhosis N Seizure Disorder N Stroke (CVA) N Colon Cancer N Leukemia N Erectile Dysfunction (ED) N Breast Cancer N Raynauds Disease N Myocardial Infarction w/o Stent (Heart A ttack) N Lung Cancer N Hypothyroidism N Glaucoma N Edmunds N Bipolar N Hypertension (High Blood Pressure) N Irregular Menses N Other Rhythm Problem N Bone loss (Osteopenia or osteoporosis) N Varicose Veins N Hearing Loss N Cervical Cancer N Hypoglycemia N Hyperlipidemia (High Cholesterol) N Chronic Kidney Disease N Vit B12 Deficiency N Incontinence, urge N Menstrual Cycle- Painful N Panic Disorder N Schizophrenia N Osteoarthritis N BPH (enlarged prostate) N UTI Chronic N Lyme Disease N Prostate Cancer N Abdominal Aortic Aneurysm N Shingles (HZ) N Non-Hodgkin's Lymphoma N Ovarian Cancer N Abnormal Mammogram N Lumbar Spine Disease N Cervical Spine Disease N Congestive Heart Failure (CHF) N Eczema N Diverticulitis N Rectal Bleeding N Dementia N Bladder Cancer N Psoriasis N Gall Stones N Thrombocytopenia (low platelets) N Allergic Rhinitis (seasonal allergies) N Gynecological HistoryNo gynecological history recorded. Obstetrics History GPAL:G 0 P 0 0 0 0 Past Encounters Encounter ID Performer Location Encounter Start Date Encounter Closed Date Diagnosis/Indication Diagnosis SNOMED-CT Code Diagnosis ICD10 Code Diagnosis Note [id number] MD Lexy Juarez [address] [place] [address] 09/05/2023 09:18:53 09/05/2023 09:46:16 Liver enzymes level above reference range 813289479 R74.01 [id number] MD Lexy Juarez [address] [place] [address] 06/17/2024 11:22:15 06/25/2024 06:36:04 Vertigo 488578720 R42 pt states she uses it for vertigo in the past. continues to use it. will refill. Allergic conjunctivitis of bilateral eyes 6860648505 66857 H10.13 Discussed with pt likely an allergic [...] is to be examined by eye dr NEWSOME.Recom mendation per state regulation s noted to follow up with a physician in 2 weeks for any new diagnosis or change in status. Pt will follow up with eye dr or RTC if no improvemen t or any change/wor sening but agrees with plan at this time.Pt verbalizes understand ing, agrees with plan, no further questions at this time. [id number] MD Lexy Juarez s [address] [place] [address] 09/30/2024 09:08:06 10/01/2024 08:14:42 Obesity 758182893 E66.9 Discussed concerns about exercise and proper diet. Encouraged to make healthier choices such as lean meats, fruits, and vegetables .Discussed dietary changes such as reduction in portion sizes, dietary salt, fast foods, and foods high in sugars. Advised to exercise for at least 30 mins most days of the week.Follo w up in 4 weeks Adult heal th examination 463380531 Z00.00 Labs ordered- see belowAdvis ed patient to follow up to schedule annual PE with core provider [id number] MD Lexy Juarez s [address] [place] [address] 10/07/2024 11:00:51 10/08/2024 08:14:51 Adult health examination [id number] Z00.00 Recommenda tions:- Exercise 150 minutes per week: 30 minutes five days a week- Maintain a healthy diet: Limit red meats, fast foods, and processed foods. Try to get 5 servings of fruits and vegetables in per day.- Limit alcohol consumptio n to 2 drinks or less a day- Use SPF 30 or greater sun screen and avoid tanning beds.- See the dentist at least twice a year- See the eye doctor once a year- Wear seat belts [place] driving [place] [id number]|2024-12-16 13:57:05|2024-12-16 13:57:05|PM.IMHP||||"H&P: HPI History of Present Illness Date/Time: 12/16/24 13:57 Chief Complaint: Screening colonoscopy Narrative: This is the patient's first colonoscopy. There are no GI symptoms and there is no family history of colorectal cancer. Review of Systems Review of Systems: All systems reviewed & are unremarkable except as noted in HPI and below PMFSH Past Medical History Medical History Shoulder pain, acute Anemia MVP (mitral valve prolapse) Anxiety Surgical History Surgical History H/O spinal fusion (~2002) Social History Social History Smoking status: Never smoker Alcohol intake: never Drinks per week: 3 Substance use: never Substance use type: does not use Living arrangements: with family Spiritual care concerns: No Meds Home Medications and Allergies Home Medications Medication Instructions Recorded Confirmed Type phentermine 15 mg capsule 15 mg PO DAILY 12/09/24 12/16/24 History topiramate 50 mg tablet (Topamax) 50 mg PO DAILY 12/09/24 12/16/24 History Allergies Allergy/AdvReac Type Severity Reaction Status Date / Time No Known Allergies Allergy Verified 12/16/24 12:50 Vital Signs Vital Signs - 24 hr 12/16/24 12:51 Temperature 97 F L Pulse Rate 92 Respiratory Rate 18 Blood Pressure 124/86 Pulse Oximetry 100 Oxygen Delivery Room Air Exam Const: General: cooperative and healthy appearing Resp: Effort & Inspection: normal respiratory effort and able to speak in complete sentences Auscultation: clear to auscultation bilaterally Cardio: Rate: regular rate Rhythm: regular rhythm GI: Inspection: normal to inspection GI Palp: No No hepatosplenomegaly present Auscultation: normal bowel sounds Rectal Exam: deferred Skin: General skin exam: normal color Psych: Appearance: grossly normal Mental Status: mental status grossly normal Assessment and Plan Assessment and plan (1) Encounter for screening colonoscopy: Code(s): Z12.11 - Encounter for screening for malignant neoplasm of colon Status: Acute Assessment and Plan: The patient is deemed a good candidate for the procedure. Consent signed. Will proceed. "
--- OUTSIDE RECORDS SUMMARY | 2024-12-16 00:50 | XMS_ITS | Clinical Summary ---
Author Organization [facility] Address [address] [place] [address] Phone Care Team Providers Care Circus Hand Name Role Phone Briana Mendez Edgardo ROWLAND Primary Care Provider [phone] Encounters Date Type Department Care Team Description 11/18/2024 External Device Data [facility] ABSTRACTION Provider, Abstract 11/18/2024 External Device Data [facility] ABSTRACTION Provider, Abstract 11/17/2024 1:30 PM CDT Ancillary Procedure [facility] [address] [place] [phone] Na Clements FNP Other abnormal and inconclusive findings on diagnostic imaging of breast from Last 3 Months Social History Tobacco Use Types Packs/Day Years Used Date Smoking Tobacco: Never Assessed Comments Unknown Sex and Gender Information Value Date Recorded Sex Assigned at Not on file Legal Sex Female 10:10 AM CDT Gender Identity Not on file Sexual Orientation Not on file Plan of Treatment Upcoming Encounters Date Type Department Care Team (Late st Contact Info) Description 12/25/2024 10:30 AM CDT Ancillary Procedure [facility] [address] [place] [phone] Na Clements FNP [address] [facility], [address] [place] [phone] 12/25/2024 11:00 AM CDT Ancillary Procedure [facility] [address] [place] [phone] Na Clements, CUPOLA TENDER HELPER [address] [facility] [address], [address] [place] [address] Health Maintenance Due Date Last Done Comments DTAP/TDAP/TD VACCINES (1 - Tdap) 1989 HEPATITIS B VACCINES (1 of 3 - 19+ 3-dose series) 1989 HPV/Cotest (21-29) 1991 CERVICAL CANCER SCREENING 02/14/2000 HPV/Cotest (30-65) 02/14/2000 PAP SMEAR 02/14/2000 COLORECTAL SCREENING 2015 Colorectal Cancer Screening 2015 FIT-DNA Q 3 years 2015 FIT/FOBT Q 1 year 2015 Flex Sig/CT Colonography Q 5 years 2015 ZOSTER VACCINE (1 of 2) 02/14/2020 INFLUENZA VACCINE (#1) 2024 BREAST CANCER SCREENING 11/17/2025 11/18/19 25, 06/13/2023, 03/02/2023 Procedures Procedure Name Priority Date/Time Associated Diagnosis Comments MAMMO 3D JEFFREY DIAGNOSTIC BILAT W OR WO CAD Routine 11/17/2024 2:01 PM CDT Other abnormal and inconclusive findings on diagnostic imaging of breast from Last 3 Months Results * MAMMO 3D JEFFREY DIAGNOSTIC BILAT W OR WO CAD (11/17/2024 2:01 PM CDT) Anatomical Region Laterality Modality Breast Bilateral Mammography 11/17/2024 3:16 PM CDT Impressions 11/17/2024 3:32 PM CDT IMPRESSION: BI-RADS 0, incomplete, bilateral diagnostic targeted breast ultrasound of the areas mentioned on the previous ultrasound report and on today's mammography report is requested. Narrative 11/17/2024 3:32 PM CDT Bilateral diagnostic mammogram. Comparison is made with bilateral breast ultrasound from 06/13/2023, unilateral right sided right diagnostic mammogram from 06/13/2023 and bilateral screening mammogram from 03/02/2023. CLINICAL HISTORY: Patient is a 54-year-old female who had pain and findings within bilateral breasts on the screening mammogram on 03/02/2023. She was the then seen for the diagnostic right-sided mammogram and not subsequently the same day, bilateral diagnostic breast ultrasound was done with BI-RADS 3 findings. The patient also supposed to come back for the bilateral breast ultrasound however presented today is that bilateral diagnostic mammogram, re-evaluate. TECHNIQUE: Bilateral CC and MLO images of the breasts were obtained and reviewed with 2-D mammogram and 3-D tomosynthesis. FINDINGS: The breast parenchyma is composed of the scattered fibroglandular densities, category B. Bilaterally, within the areas seen during the previous imaging, the left breast at 4:00, 5 cm from the nipple, there is a hyperdense oval area without then no internal flow seen, most likely septated cyst.. Within the right breast, at 1-2 o'clock, there is an intramammary lymph node. Within the right breast, 5-. Bilaterally, there are no other suspicious masses, microcalcifications in clusters, architectural distortions or asymmetric densities. 6 cm from the nipple at 8:00, there is oval, hyperdense area on mammogram which on ultrasound was read as a complex cyst. Elsewhere, bilaterally, other than already mentioned oval masses versus lymph nodes, there are no suspicious masses, microcalcifications in clusters, architectural distortions or asymmetric densities. Na ROWLAND MAMMO ORDERABLES Final Res ult from Last 3 Months Insurance [facility] U[facility] Care Teams Circus Hand Relationship Specialty Start Date End Date Briana Mendez FNP [address] [place] [phone] PCP - General Nurse Practitioner Family 06/13/23
[2024-12-16 12:51] VITALS: BP 124/86; PULSE 92; RESP 18; TEMP 36.1; O2SAT 100; BMI 29.2
[2024-12-16] MEDS: LACTATED RINGERS 1,000 ML 150 ML IV CONT (13:04)
--- NOTE | 2024-12-16 13:44 | WPDANESEPPF ---
Anes - Initial Pre Proc Eval Procedure: Operation Date: 12/16/24 14:00 Proposed Procedures p Screening Colonoscopy - Og Ledezma MD Date/Time: 12/16/24 13:44 Surgeon: Og Ledezma MD Pre Op Diagnosis: Screening Patient Data Age: 54 Gender: F Height: 1.6 m Weight: 74.8 kg Last Vital Signs Temp 36.1 C L 12/16/24 12:51 Pulse 92 12/16/24 12:51 Resp 18 12/16/24 12:51 BP 124/86 12/16/24 12:51 Pulse Ox 100 12/16/24 12:51 O2 Del Method Room Air 12/16/24 12:51 Allergies Allergy/AdvReac Type Severity Reaction Status Date / Time No Known Allergies Allergy Verified 12/16/24 12:50 Home Medications Medication Instructions Recorded Confirmed Type phentermine 15 mg capsule 15 mg PO DAILY 12/09/24 12/16/24 History topiramate 50 mg tablet (Topamax) 50 mg PO DAILY 12/09/24 12/16/24 History Patient hx anesthesia problems: none Family hx anesthesia problems: none Results Review: All pre-operative results and documents have been reviewed as part of the pre-operative evaluation. [facility] Past Medical History Medical History Shoulder pain, acute Anemia MVP (mitral valve prolapse) Anxiety Surgical History Surgical History H/O spinal fusion (~2002) Social History Social History Smoking status: Never smoker Alcohol intake: never Drinks per week: 3 Substance use: never Substance use type: does not use Living arrangements: with family Spiritual care concerns: No Anes - Eval Final PreProcedure Day of Procedure 12/16/24 13:44 Patient weight: overweight Heart: regular rate and rhythm Lungs: clear to auscultation Airway: Mallampati scale class II Neurological: alert and oriented Last oral intake: >/= 8 hours ASA classification: II Emergent: no Anesthetic plan: proceed Anesthesia type and monitoring: general GIVS and standard monitoring Results Review: All pre-operative results and documents have been reviewed as part of the pre-operative evaluation. Informed Consent: The patient's anesthetic plan and its attendant risks and benefits were discussed with the patient/family/POA. Questions were solicited and answers provided to the satisfaction of the patient/family/POA.
--- NOTE | 2024-12-16 13:57 | P.HP_ITS ---
H&P: HPI History of Present Illness Date/Time: 12/16/24 13:57 Chief Complaint: Screening colonoscopy Narrative: This is the patient's first colonoscopy. There are no GI symptoms and there is no family history of colorectal cancer. Review of Systems Review of Systems: All systems reviewed & are unremarkable except as noted in HPI and below PMFSH Past Medical History Medical History Shoulder pain, acute Anemia MVP (mitral valve prolapse) Anxiety Surgical History Surgical History H/O spinal fusion (~2002) Social History Social History Smoking status: Never smoker Alcohol intake: never Drinks per week: 3 Substance use: never Substance use type: does not use Living arrangements: with family Spiritual care concerns: No Meds Home Medications and Allergies Home Medications Medication Instructions Recorded Confirmed Type phentermine 15 mg capsule 15 mg PO DAILY 12/09/24 12/16/24 History topiramate 50 mg tablet (Topamax) 50 mg PO DAILY 12/09/24 12/16/24 History Allergies Allergy/AdvReac Type Severity Reaction Status Date / Time No Known Allergies Allergy Verified 12/16/24 12:50 Vital Signs Vital Signs - 24 hr 12/16/24 12:51 Temperature 97 F L Pulse Rate 92 Respiratory Rate 18 Blood Pressure 124/86 Pulse Oximetry 100 Oxygen Delivery Room Air Exam Const: General: cooperative and healthy appearing Resp: Effort & Inspection: normal respiratory effort and able to speak in complete sentences Auscultation: clear to auscultation bilaterally Cardio: Rate: regular rate Rhythm: regular rhythm GI: Inspection: normal to inspection GI Palp: No No hepatosplenomegaly present Auscultation: normal bowel sounds Rectal Exam: deferred Skin: General skin exam: normal color Psych: Appearance: grossly normal Mental Status: mental status grossly normal Assessment and Plan Assessment and plan (1) Encounter for screening colonoscopy: Code(s): Z12.11 - Encounter for screening for malignant neoplasm of colon Status: Acute Assessment and Plan: The patient is deemed a good candidate for the procedure. Consent signed. Will proceed.
[2024-12-16 14:16] VITALS: BP 130/82; PULSE 89; RESP 19; O2SAT 98
[2024-12-16 14:26] VITALS: BP 123/84; PULSE 83; RESP 19; O2SAT 100
[2024-12-16 14:36] VITALS: BP 123/83; PULSE 72; RESP 16; O2SAT 100
== END 2024-12-16 14:50 | disposition home or self-care (01) ==
PROVIDERS: Visit Provider Internal Medicine Gastroenterology
PROC: 0DJD8ZZ Inspection of Lower Intestinal Tract, Via Natural or Artificial Opening Endoscopic (ICD-10-PCS; CPT 45378; principal; 2024-12-16 14:00)
DX: Z12.11 Encounter for screening for malignant neoplasm of colon (principal); D64.9 Anemia, unspecified; F41.9 Anxiety disorder, unspecified; Z86.79 Personal history of other diseases of the circulatory system; Z98.1 Arthrodesis status
CPT/HCPCS: 45378; J2003; J2704; J7120

== ENCOUNTER 2025-04-30 09:35 | Emergency (ER) | payer OTHER, SELFPAY ==
--- OUTSIDE RECORDS SUMMARY | 2001-05-03 04:45 | XMS_ITS | Continuity of Care Document ---
Author Organization [facility] Address [id number] [place] [address] [address] [place] [address] Phone Care Team Providers Care Computer Salesperson Retail Name Role Phone Brittsy, Eddalila Unavailable Unavailable Advance Directives Directive Yes / No Effective Date File Name No Information Encounters Encounter Description Practice Location Reason(s) For Visit Diagnoses Date Provider Providers Copied on Encounter [facility], [address], [place], [place], [id number], [place] tel:[phone] SEC [facility] No Information 0 5-200 1 Doisy Edward. [address] [facility] , [address], [place], [place], [facility], [place]. tel:[phone] Referring Provider: Sage Valente, [address] [facility] [place] [facility] [address], [place], [place], [facility]. tel:[phone] Family History Family Member Type Diagnosis Age At Onset No Information Payers Payer name Insurance type Covered democrat ID Authoriza tion(s) No Information Social History Type Description Quantity Date Captured Comments Sex Female Smoking Status No Information Chief Complaint And Reason For Visit No Information Reason For Referral Reason For Referral No Information History Of Present Illness Encounter Date Complaint History Of Prese nt Illness No Information Functional Status Date Functional Assessmen t No Information Instructions Date Instruction Additional Infor mation No Information Assessments Type Assessment Date No Information Patient Care Teams Name Effective Dates (start - stop) Status Members No Information
--- OUTSIDE RECORDS SUMMARY | 2001-05-03 04:45 | XMS_ITS | Continuity of Care Document ---
Author Organization [facility] Address [address] [place] [address] [address] [place] [address] Phone Care Team Providers Care Electrolog Operator Name Role Phone Brittsy, Eddalila Unavailable Unavailable Advance Directives Directive Yes / No Effective Date File Name No Information Encounters Encounter Description Practice Location Reason(s) For Visit Diagnoses Date Provider Providers Copied on Encounter [facility], [address], [place], [place], [id number], [place] tel:[phone] SEC [facility] No Information 0 5-200 1 Doisy Edward. [address] [facility] , [address], [place], [place], [facility], [place]. tel:[phone] Referring Provider: Sage Valente, [address] [facility] [address], [place], [place], [facility]. tel:[phone] Family History Family Member Type Diagnosis Age At Onset No Information Payers Payer name Insurance type Covered republican ID Authoriza tion(s) No Information Social History [...]
--- NOTE | ~2025-04-30 | CT_ITS ---
EXAMINATION: CT brain wo con DATE: 04/30/2025 10:20 INDICATION: Severe headache TECHNIQUE: Computed tomography (CT) of the head was performed without intravenous contrast. Sagittal and coronal reconstructions were performed. The mA was adjusted according to patient size. Iterative reconstruction technique was employed. The dose-length product was 529.67 mGy-cm. COMPARISON: head CT dated 04/04/2005 FINDINGS: No acute intracranial hemorrhage, acute infarction or abnormal extra axial fluid collection. Ventricles are normal and symmetric. No mass/mass effect. The orbits, paranasal sinuses and mastoid air cells are normal. IMPRESSION: 1. Normal head CT. Reviewed, dictated and finalized at location A. IMPRESSION: 1. Normal head CT.
[2025-04-30 09:43] VITALS: BP 118/84; PULSE 77; RESP 14; TEMP 36.6; O2SAT 100
--- NOTE | 2025-04-30 09:51 | ECG_ITS ---
Test Date: 2025-04-30 09:59:03 Measurements Intervals Hope Rate: 65 P: 56 MI: 180 QRS: 75 QRSD: 96 T: 58 QT: 410 QTc: 429 Interpretive Statements SINUS RHYTHM NORMAL ECG Compared to ECG 09/15/2024 15:15:22 Sinus arrhythmia no longer present Electronically Signed On 04-30-2025 10:04:26 CDT by Flo Retana D.O.
[2025-04-30 10:04] LABS: Hematocrit 45.4 % (35.0-49.0); Hemoglobin 15.5 g/dL (12.0-15.0); Immature Granulocyte Percent A 0.5 % (0.0-0.0); Lymphocytes Absolute Auto 2.01 K/mm3 (1.10-4.50); Mean Corpuscular HGB Conc 34.1 g/dL (32-36); Mean Corpuscular Hemoglobin 30.3 pg (27.0-31.0); Mean Corpuscular Volume 88.7 fL (78.0-102.0); Nucleated Red Blood Cells Absolute Auto 0.00 K/mm3 (0.00-0.00); Nucleated Red Blood Cells Perc 0.0 % (0-0.0); Platelet Count Result 324 K/mm3 (150-420); Red Blood Count 5.12 M/mm3 (4.20-5.40); White Blood Count 6.2 K/mm3 (4.8-10.8)
[2025-04-30] MEDS: SODIUM CHLORIDE 0.9% IV 1,000 ML 999 ML IV CONT (10:04)
[2025-04-30] MEDS: ONDANSETRON INJ 4 MG/2 ML VIAL IV PUSH (10:05)
[2025-04-30] MEDS: KETOROLAC 30 MG/ML VIAL (*BKC) IV PUSH (10:06)
--- OUTSIDE RECORDS SUMMARY | 2025-04-30 10:06 | XMS_ITS | Clinical Summary ---
Author Organization [facility] Address [address] [place] [address] Phone Care Team Providers Care Manager [place] Name Role Phone Briana Mendez JANETT Primary Care Provider [phone] Encounters Date Type Department Care Team Description 03/03/2025 External Device Data [facility] ABSTRACTION Provider, Abstract 02/11/2025 External Device Data [facility] ABSTRA[facility] Provider, Abstract 02/11/2025 External Device Data [facility] Provider, Abstract 02/10/2025 External Device Data [facility] ABSTRA[facility] Provider, Abstract from Last 3 Months Social History Tobacco Use Types Packs/Day Years Used Date Smoking Tobacco: Never Assessed Comments Unknown Sex and Gender Information Value Date Recorded Sex Assigned at Not on file Legal Sex Female 10:10 AM CDT Gender Identity Not on file Sexual Orientation Not on file Plan of Treatment Health Maintenance Due Date Last Done Comments Pre-Diabetes and Diabetes Screening 1970 DTAP/TDAP/TD VACCINES (1 - Tdap) 1989 HEPATITIS B VACCINES (1 of 3 - 19+ 3-dose series) 1989 HPV/Cotest (21-29) 1991 CERVICAL CANCER SCREENING 02/14/2000 HPV/Cotest (30-65) 02/14/2000 PAP SMEAR 02/14/2000 COLORECTAL SCREENING 2015 Colorectal Cancer Screening 2015 FIT-DNA Q 3 years 2015 FIT/FOBT Q 1 year 2015 Flex Sig/CT Colonography Q 5 years 2015 ZOSTER VACCINE (1 of 2) 02/14/2020 INFLUENZA VACCINE (#1) 2025 BREAST CANCER SCREENING 11/17/2025 11/18/19 25, 06/13/2023, 03/02/2023 Procedures Procedure Name Priority Date/Time Associated Diagnosis Comments MAMMO 3D JEFFREY DIAGNOSTIC BILAT W OR WO CAD Routine 11/17/2024 2:01 PM CDT Other abnormal and inconclusive findings on diagnostic imaging of breast from Last 3 Months or Most Recently Relevant to Health Maintenance Results * MAMMO 3D JEFFREY DIAGNOSTIC BILAT [...] clusters, architectural distortions or asymmetric densities. 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
[2025-04-30 10:16] LABS: Alanine Aminotransferase 43 U/L (6-35); Albumin Level 4.6 g/dL (3.5-5.1); Alkaline Phosphatase 102 U/L (38-126); Anion Gap 9 mmol/L (4-12); Aspartate Amino Transferase 38 U/L (14-36); Bilirubin,Total 0.5 mg/dL (0.2-1.3); Blood Urea Nitrogen 12 mg/dL (7-17); Calcium 9.8 mg/dL (8.4-10.2); Carbon Dioxide 27 mmol/L (22-30); Chloride 107 mmol/L (98-107); Estimated CRCL calculation 62 ml/min; Estimated Glomerular Filt Rate > 60; Glucose 99 mg/dL (65-110); Osmolality Calculated 295 mOsm/kg (285-295); Potassium 4.3 mmol/L (3.4-5.0); Sodium 143 mmol/L (137-145); Total Protein 8.6 g/dL (6.3-8.2)
--- NOTE | 2025-04-30 10:24 | ED.DIZZY ---
HPI - Dizziness General Chief Complaint: Dizziness Stated Complaint: ill Time Seen by Provider: 04/30/25 09:51 Source: patient and family Mode of arrival: ambulatory Limitations: no limitations History of Present Illness HPI Narrative: this is a 55-year-old female with a history of migraines presents with a 2 week history of dizziness and has been having migraine type headache, that she rates 9 and 10 over last 24hours pulsating left-sided with some nausea with no neurological deficits no fever chills no neck stiffness does have some sinus congestion and pressure with no shortness of breath no abdominal pain no chest pain no diarrhea constipation. MD elicited complaint: dizziness Onset (ago): week(s) Severity: moderate Description: room spinning History of similar symptoms: No Related Data Home Medications ?Medication ?Instructions ?Recorded ?Confirmed ?Last Taken ?Type topiramate 50 mg tablet (Topamax) 50 mg PO DAILY 12/09/24 12/16/24 12/05/24 History meclizine 25 mg chewable tablet 25 mg PO TID PRN dizziness 04/30/25 Unknown History (Antivert) Allergies Allergy/AdvReac Type Severity Reaction Status Date / Time No Known Allergies Allergy Verified 04/30/25 09:50 Review of Systems Review of Systems: All systems reviewed & are unremarkable except as noted in HPI and below PMFSH Past Medical History Medical History Shoulder pain, acute Anemia MVP (mitral valve prolapse) Anxiety Surgical History Surgical History H/O spinal fusion (~2002) Social History Social History Smoking status: Never smoker Alcohol intake: never Drinks per week: 3 Substance use: never Substance use type: does not use Living arrangements: with family Spiritual care concerns: No Exam Const: General: healthy appearing and no acute distress Nutritional Appearance: well nourished Orientation/consciousness: patient oriented x3 Limitations: no limitations HENMT: Other: Does have maxillary sinus tenderness palpation with bilateral ear dullness and nasal turbinates inflamed and erythematous. Eyes: Conjunctivae: conjunctivae normal Pupils: Equal, round and reactive pupils present EOM: EOMs intact bilaterally Direct Ophthalmoscopy: photophobia Neck: Neck: normal visual inspection, no lymphadenopathy and no meningeal signs Chest: Chest palpation & inspection: normal inspection of the chest Resp: Effort & Inspection: normal respiratory effort Auscultation: clear to auscultation bilaterally Cardio: Rate: regular rate Rhythm: regular rhythm GI: Auscultation: normal bowel sounds : General: Yes bladder normal to palpation Back/Spine/Pelvis: Back: no CVA tenderness Skin: General skin exam: normal color Rashes: no rashes Neuro: General: patient oriented x3, moves all extremities, no meningeal signs and no focal motor deficits Extrem: General: normal to inspection, no clubbing, cyanosis or edema and no pedal edema Course Course Emergency Course: patient with dizziness and headache that she describes is throbbing left-sided photophobia and patient was given Toradol 30mg IV along with IV fluids, Zofran IV and Benadryl. After reassessment patient's headache has improved, CT scan performed shows no acute abnormalities, blood work with no acute abnormalities EKG is normal sinus rhythm. Vital Signs Vital signs: Vital Signs Temperature 36.6 C 04/30/25 09:43 Pulse Rate 77 04/30/25 09:43 Respiratory Rate 14 04/30/25 09:43 Blood Pressure 118/84 04/30/25 09:43 Pulse Oximetry 100 04/30/25 09:43 Oxygen Delivery Room Air 04/30/25 09:43 Temperature 36.6 C 04/30/25 09:43 Pulse Rate 77 04/30/25 09:43 Respiratory Rate 14 04/30/25 09:43 Blood Pressure 118/84 04/30/25 09:43 Pulse Oximetry 100 04/30/25 09:43 Oxygen Delivery Room Air 04/30/25 09:43 MDM - Dizziness Lab Data 04/30/25 10:01 04/30/25 10:01 Labs: Lab Results 04/30/25 Range/Units 10: WBC 6.2 (4.8-10.8) K/mm3 RBC 5.12 (4.20-5.40) M/mm3 Hgb 15.5 H (12.0-15.0) g/dL Hct 45.4 (35.0-49.0) % MCV 88.7 (78.0-102.0) fL MCH 30.3 (27.0-31.0) pg MCHC 34.1 (32-36) g/dL RDW 12.4 (11.6-14.4) % Plt Count 324 (150-420) K/mm3 MPV 9.0 L (9.2-11.8) fl Immature Gran % (Auto) 0.5 H (0.0-0.0) % Neut % (Auto) 60.0 (50.0-70.0) % Lymph % (Auto) 32.4 (18.0-42.0) % Charlton % (Auto) 5.0 (2.0-11.0) % Eos % (Auto) 1.6 (1.0-6.0) % Baso % (Auto) 0.5 (0.0-1.0) % Lymph # (Auto) 2.01 (1.10-4.50) K/mm3 Charlton # (Auto) 0.31 (0.10-0.90) K/mm3 Eos # (Auto) 0.10 (0.02-0.50) K/mm3 Baso # (Auto) 0.03 (0.00-0.10) K/mm3 Abs Immat Gran (auto) 0.03 H (0.00-0.00) K/mm3 Absolute Neuts (auto) 3.72 (1.70-7.20) K/mm3 Absolute Nucleated RBC 0.00 (0.00-0.00) K/mm3 Nucleated RBC % 0.0 (0-0.0) % Sodium 143 (137-145) mmol/L Potassium 4.3 (3.4-5.0) mmol/L Chloride 107 (98-107) mmol/L Carbon Dioxide 27 (22-30) mmol/L Anion Gap 9 (4-12) mmol/L BUN 12 (7-17) mg/dL Creatinine 0.86 (0.7-1.0) mg/dL Estim Creat Clear Calc 62 ml/min Estimated GFR > 60 (59 - ) Glucose 99 (65-110) mg/dL Calculated Osmolality 295 (285-295) mOsm/kg Calcium 9.8 (8.4-10.2) mg/dL Total Bilirubin 0.5 (0.2-1.3) mg/dL AST 38 H (14-36) U/L ALT 43 H (6-35) U/L Alkaline Phosphatase 102 (38-126) U/L Total Protein 8.6 H (6.3-8.2) g/dL Albumin 4.6 (3.5-5.1) g/dL Critical Care Time Critical Care Time Critical Care Time: No Discharge Plan Discharge Clinical Impression: Dizziness Migraine Qualifiers: Migraine type: unspecified Status migrainosus presence: without status migrainosus Intractability: not intractable Qualified Code(s): G43.909 - Migraine, unspecified, not intractable, without status migrainosus Sinusitis Qualifiers: Sinusitis location: maxillary Chronicity: acute Recurrence: non-recurrent Qualified Code(s): J01.00 - Acute maxillary sinusitis, unspecified Patient Disposition: Home Condition: Stable Instructions: Antibiotic Form, Sinusitis (ED), Migraine Headache (ED), Vertigo (ED), Dizziness (ED) Patient Language: Tamazight Prescriptions: No Action meclizine [Antivert] 25 mg tablet,chewable 25 mg PO TID PRN (Reason: dizziness) topiramate [Topamax] 50 mg tablet 50 mg PO DAILY Patient Comments: For weightloss Follow-up/Referrals: PHYSICIAN NOT ON STAFF,NONSTAFF [Non-Staff]
--- OUTSIDE RECORDS SUMMARY | 2025-04-30 11:02 | XMS_ITS | Clinical Summary ---
Author Organization [facility] Address [address] [place] [address] Phone Care Team Providers Care Bargain Table Clerk Name Role Phone Briana Mendez JANETT Primary Care Provider [phone] Encounters Date Type Department Care Team Description [...] architectural distortions or asymmetric densities. 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
[2025-04-30 11:23] VITALS: BP 127/74; PULSE 83; RESP 20; TEMP 36.7; O2SAT 100
== END 2025-04-30 11:26 | disposition home or self-care (01) ==
PROVIDERS: Emergency Provider Emergency Medicine
DX: G43.909 Migraine, unspecified, not intractable, without status migrainosus (principal); R42 Dizziness and giddiness; J01.00 Acute maxillary sinusitis, unspecified
CPT/HCPCS: 36415; 70450; 80053; 85025; 93005; 96361; 96374; 96375; 99284; J1200; J1885; J2405; J7030